=== PATIENT | male | born 1975 | race Caucasian/White ===

== ENCOUNTER 2024-04-23 23:48 | Emergency (ER) | payer SELFPAY ==
[2024-04-23 23:59] VITALS: BP 127/86; PULSE 100; RESP 18; TEMP 98.7; BMI 26.6
[2024-04-24 03:50] LABS: HIV INTERPRETATION NEGATIVE (NEGATIVE)
== END 2024-04-24 02:39 | disposition home or self-care (01) ==
LOC: EDBD → JER 23:48
DX: F10.930 Alcohol use, unspecified with withdrawal, uncomplicated (principal); Y90.9 Presence of alcohol in blood, level not specified
CPT/HCPCS: 36415; 86803; 87389; 99283-25